=== PATIENT | female | born 1970 | race Caucasian/White ===

== ENCOUNTER 2019-12-19 15:14 | Outpatient (RCR) | payer OTHER, SELFPAY ==
[2019-09-20 11:28] LABS: INR 2.3; Prothrombin Time 24.7 Seconds (11.1-14.7)
[2019-09-27 08:57] LABS: INR 3.3
[2019-10-15 10:33] LABS: INR 2.8; Prothrombin Time 28.8 Seconds (11.1-14.7)
[2019-11-01 10:51] LABS: INR 2.4; Prothrombin Time 25.5 Seconds (11.1-14.7)
[2019-11-19 14:51] LABS: INR 2.6; Prothrombin Time 27.6 Seconds (11.1-14.7)
[2019-12-19 16:02] LABS: INR 2.2; Prothrombin Time 24.2 Seconds (11.1-14.7)
== END 2019-12-19 23:59 | disposition home or self-care (01) ==
LOC: ANHLAB 15:14
PROVIDERS: PCP Internal Medicine Cardiovascular Disease; Visit Provider Internal Medicine Cardiovascular Disease
DX: Z51.81 Encounter for therapeutic drug level monitoring (principal); D68.61 Antiphospholipid syndrome; Z79.01 Long term (current) use of anticoagulants
CPT/HCPCS: 36415; 85610

== ENCOUNTER 2020-03-09 12:35 | Outpatient (RCR) | payer OTHER, SELFPAY ==
[2020-01-03 11:20] LABS: INR 2.5; Prothrombin Time 26.5 Seconds (11.1-14.7)
[2020-01-24 17:22] LABS: Prothrombin Time 53.6 Seconds (11.1-14.7)
[2020-01-24 18:14] LABS: INR 6.1
[2020-01-28 13:41] LABS: INR 1.2; Prothrombin Time 15.2 Seconds (11.1-14.7)
[2020-02-07 11:16] LABS: INR 2.4; Prothrombin Time 25.8 Seconds (11.1-14.7)
[2020-02-24 12:23] LABS: INR 3.4; Prothrombin Time 33.8 Seconds (11.1-14.7)
[2020-03-09 13:06] LABS: INR 2.4; Prothrombin Time 25.6 Seconds (11.1-14.7)
== END 2020-04-02 23:59 | disposition home or self-care (01) ==
LOC: ANHLAB 12:35
PROVIDERS: PCP Internal Medicine; Visit Provider Internal Medicine Cardiovascular Disease
DX: Z51.81 Encounter for therapeutic drug level monitoring (principal); Z79.01 Long term (current) use of anticoagulants
CPT/HCPCS: 36415; 85610

== ENCOUNTER 2020-06-23 12:07 | Outpatient (RCR) | payer OTHER, SELFPAY ==
[2020-04-03 12:52] LABS: INR 2.2
[2020-04-17 12:16] LABS: INR 2.7; Prothrombin Time 28.5 Seconds (11.1-14.7)
[2020-05-11 12:44] LABS: Alanine Aminotransferase 60 U/L (4-35); Albumin Level 4.3 g/dL (3.5-5.1); Alkaline Phosphatase 139 U/L (38-126); Aspartate Amino Transferase 52 U/L (14-36); Bilirubin,Total 1.2 mg/dL (0.2-1.3); Blood Urea Nitrogen 14 mg/dL (7-17); Calcium 8.8 mg/dL (8.4-10.2); Carbon Dioxide 28 mmol/L (22-30); Chloride 103 mmol/L (98-107); Cholesterol 107 mg/dL (0-200); Estimated Glomerular Filt Rate > 60; Glucose 124 mg/dL (65-105); HDL Direct 30 mg/dL; Prothrombin Time 38.5 Seconds (11.1-14.7); Sodium 137 mmol/L (137-145); Triglycerides 113 mg/dL (<150)
[2020-05-11 12:55] LABS: LDL Cholesterol Direct 63 mg/dL
[2020-05-18 12:46] LABS: INR 2.2; Prothrombin Time 24.3 Seconds (11.1-14.7)
[2020-06-01 12:41] LABS: Cholesterol 132 mg/dL (0-200); HDL Direct 31 mg/dL; Triglycerides 159 mg/dL (<150)
[2020-06-01 12:42] LABS: INR 1.9; Prothrombin Time 21.2 Seconds (11.1-14.7)
[2020-06-01 12:42] LABS: Alanine Aminotransferase 54 U/L (4-35); Albumin Level 4.2 g/dL (3.5-5.1); Alkaline Phosphatase 151 U/L (38-126); Aspartate Amino Transferase 39 U/L (14-36); Bilirubin,Total 0.8 mg/dL (0.2-1.3); Blood Urea Nitrogen 18 mg/dL (7-17); Calcium 9.2 mg/dL (8.4-10.2); Carbon Dioxide 26 mmol/L (22-30); Chloride 103 mmol/L (98-107); Estimated Glomerular Filt Rate > 60; Glucose 139 mg/dL (65-105); Potassium 3.9 mmol/L (3.4-5.0); Sodium 136 mmol/L (137-145)
[2020-06-01 12:52] LABS: LDL Cholesterol Direct 76 mg/dL
[2020-06-23 13:20] LABS: INR 2.5; Prothrombin Time 26.1 Seconds (11.1-14.7)
== END 2020-07-02 23:59 | disposition home or self-care (01) ==
LOC: ANHLAB 12:07
PROVIDERS: PCP Internal Medicine; Visit Provider Internal Medicine Cardiovascular Disease
DX: Z51.81 Encounter for therapeutic drug level monitoring (principal); E78.5 Hyperlipidemia, unspecified; Z79.01 Long term (current) use of anticoagulants
CPT/HCPCS: 36415; 80053; 80061; 85610

== ENCOUNTER 2020-09-18 12:17 | Outpatient (RCR) | payer MEDICARE, OTHER, MEDICAID, SELFPAY ==
[2020-07-14 15:46] LABS: INR 2.9; Prothrombin Time 29.5 Seconds (11.1-14.7)
[2020-08-04 11:22] LABS: INR 2.4; Prothrombin Time 25.3 Seconds (11.1-14.7)
[2020-09-02 12:55] LABS: INR 1.7; Prothrombin Time 19.3 Seconds (11.1-14.7)
[2020-09-18 12:59] LABS: INR 2.8; Prothrombin Time 29.3 Seconds (11.1-14.7)
== END 2020-10-12 23:59 | disposition home or self-care (01) ==
LOC: ANHLAB 12:17
PROVIDERS: PCP Internal Medicine; Visit Provider Internal Medicine Cardiovascular Disease
DX: Z51.81 Encounter for therapeutic drug level monitoring (principal); Z79.01 Long term (current) use of anticoagulants
CPT/HCPCS: 36415; 85610

== ENCOUNTER 2021-01-13 11:09 | Outpatient (RCR) | payer MEDICARE, MEDICAID, SELFPAY ==
[2020-11-04 15:02] LABS: INR 1.4; Prothrombin Time 17.7 Seconds (11.1-14.7)
[2020-11-24 14:11] LABS: INR 2.3; Prothrombin Time 25.9 Seconds (11.1-14.7)
[2020-12-24 11:15] LABS: INR 1.8; Prothrombin Time 21.3 Seconds (11.1-14.7)
[2021-01-13 12:14] LABS: INR 2.3; Prothrombin Time 25.9 Seconds (11.1-14.7)
== END 2021-02-02 23:59 | disposition home or self-care (01) ==
LOC: ANHLAB 11:09
PROVIDERS: PCP Internal Medicine; Visit Provider Internal Medicine Cardiovascular Disease
DX: Z51.81 Encounter for therapeutic drug level monitoring (principal); Z79.01 Long term (current) use of anticoagulants
CPT/HCPCS: 36415; 85610

== ENCOUNTER 2021-05-11 12:22 | Outpatient (RCR) | payer MEDICARE, MEDICAID, SELFPAY ==
[2021-02-10 10:13] LABS: INR 2.5; Prothrombin Time 27.8 Seconds (11.1-14.7)
[2021-03-15 11:38] LABS: INR 1.6; Prothrombin Time 19.5 Seconds (11.1-14.7)
[2021-03-23 11:11] LABS: INR 3.2; Prothrombin Time 33.1 Seconds (11.1-14.7)
[2021-03-31 11:59] LABS: INR 2.8; Prothrombin Time 29.7 Seconds (11.1-14.7)
[2021-04-13 13:23] LABS: INR 1.8; Prothrombin Time 21.6 Seconds (11.1-14.7)
[2021-04-27 12:05] LABS: INR 3.5; Prothrombin Time 35.6 Seconds (11.1-14.7)
[2021-05-11 13:19] LABS: INR 2.6; Prothrombin Time 28.1 Seconds (11.1-14.7)
== END 2021-05-11 23:59 | disposition home or self-care (01) ==
LOC: ANHLAB 12:22
PROVIDERS: PCP Internal Medicine; Visit Provider Internal Medicine Cardiovascular Disease
DX: Z51.81 Encounter for therapeutic drug level monitoring (principal); D68.61 Antiphospholipid syndrome; Z79.01 Long term (current) use of anticoagulants
CPT/HCPCS: 36415; 85610

== ENCOUNTER 2021-05-11 12:25 | Outpatient (CLI) | payer MEDICARE, MEDICAID, SELFPAY ==
[2021-05-11 13:18] LABS: Alanine Aminotransferase 78 U/L (4-35); Albumin Level 4.4 g/dL (3.5-5.1); Alkaline Phosphatase 148 U/L (38-126); Anion Gap 11 mmol/L (8-16); Aspartate Amino Transferase 74 U/L (14-36); Bilirubin,Total 1.1 mg/dL (0.2-1.3); Blood Urea Nitrogen 14 mg/dL (7-17); Calcium 9.6 mg/dL (8.4-10.2); Carbon Dioxide 25 mmol/L (22-30); Chloride 104 mmol/L (98-107); Estimated Glomerular Filt Rate > 60; Glucose 126 mg/dL (65-105); Potassium 3.8 mmol/L (3.4-5.0); Sodium 140 mmol/L (137-145)
== END 2021-05-11 12:26 | disposition home or self-care (01) ==
PROVIDERS: PCP Internal Medicine; Visit Provider Internal Medicine Cardiovascular Disease
DX: E78.5 Hyperlipidemia, unspecified (principal)
CPT/HCPCS: 36415; 80053; 84443; 85610

== ENCOUNTER 2021-06-01 12:27 | Outpatient (CLI) | payer MEDICARE, MEDICAID, SELFPAY ==
[2021-06-01 13:12] LABS: INR 1.9; Prothrombin Time 21.3 Seconds (11.1-14.7)
[2021-06-01 13:15] LABS: Cholesterol 145 mg/dL (0-200); HDL Direct 36 mg/dL; Triglycerides 132 mg/dL (<150)
[2021-06-01 13:26] LABS: LDL Cholesterol Direct 84 mg/dL
== END 2021-06-01 12:28 | disposition home or self-care (01) ==
LOC: ANHLAB 12:30
PROVIDERS: PCP Internal Medicine; Visit Provider Internal Medicine Cardiovascular Disease
DX: E78.5 Hyperlipidemia, unspecified (principal); Z79.01 Long term (current) use of anticoagulants
CPT/HCPCS: 36415; 80061; 85610

== ENCOUNTER 2021-10-18 12:49 | Outpatient (RCR) | payer MEDICARE, MEDICAID, SELFPAY ==
[2021-07-21 11:17] LABS: INR 2.9; Prothrombin Time 29.2 Seconds (11.1-14.7)
[2021-08-18 11:23] LABS: INR 2.2; Prothrombin Time 23.7 Seconds (11.1-14.7)
[2021-09-27 11:23] LABS: INR 2.3; Prothrombin Time 24.8 Seconds (11.1-14.7)
[2021-10-18 13:34] LABS: INR 2.8
== END 2021-10-19 23:59 | disposition home or self-care (01) ==
LOC: ANHLAB 12:49
PROVIDERS: PCP Internal Medicine; Visit Provider Internal Medicine Cardiovascular Disease
DX: Z51.81 Encounter for therapeutic drug level monitoring (principal); Z79.01 Long term (current) use of anticoagulants
CPT/HCPCS: 36415; 85610

== ENCOUNTER 2021-12-13 10:59 | Outpatient (CLI) | payer MEDICARE, MEDICAID, SELFPAY ==
[2021-12-13 12:06] LABS: Alanine Aminotransferase 126 U/L (4-35); Albumin Level 4.5 g/dL (3.5-5.1); Alkaline Phosphatase 170 U/L (38-126); Anion Gap 10 mmol/L (8-16); Aspartate Amino Transferase 83 U/L (14-36); Bilirubin,Total 1.3 mg/dL (0.2-1.3); Blood Urea Nitrogen 16 mg/dL (7-17); Calcium 9.5 mg/dL (8.4-10.2); Carbon Dioxide 23 mmol/L (22-30); Chloride 99 mmol/L (98-107); Cholesterol 153 mg/dL (0-200); Estimated Glomerular Filt Rate > 60; Glucose 376 mg/dL (65-110); HDL Direct 33 mg/dL; Potassium 4.2 mmol/L (3.4-5.0); Sodium 132 mmol/L (137-145); Triglycerides 169 mg/dL (<150)
[2021-12-13 12:17] LABS: LDL Cholesterol Direct 99 mg/dL
== END 2021-12-13 11:00 | disposition home or self-care (01) ==
PROVIDERS: PCP Internal Medicine; Visit Provider Internal Medicine Cardiovascular Disease
DX: E78.5 Hyperlipidemia, unspecified (principal)
CPT/HCPCS: 36415; 80053; 80061; 85610

== ENCOUNTER 2022-01-12 09:25 | Outpatient (RCR) | payer MEDICARE, MEDICAID, SELFPAY ==
[2021-11-09 10:47] LABS: INR 3.2
[2021-12-13 12:17] LABS: INR 1.4; Prothrombin Time 16.7 Seconds (11.1-14.7)
[2022-01-12 09:58] LABS: Prothrombin Time 30.4 Seconds (11.1-14.7)
== END 2022-02-07 23:59 | disposition home or self-care (01) ==
LOC: ANHLAB 09:25
PROVIDERS: PCP Internal Medicine; Visit Provider Internal Medicine Cardiovascular Disease
DX: Z51.81 Encounter for therapeutic drug level monitoring (principal); Z79.01 Long term (current) use of anticoagulants
CPT/HCPCS: 36415; 85610

== ENCOUNTER 2022-05-20 11:07 | Outpatient (RCR) | payer MEDICARE, MEDICAID, SELFPAY ==
[2022-02-21 12:09] LABS: INR 2.6; Prothrombin Time 26.7 Seconds (11.1-14.7)
[2022-05-20 12:27] LABS: Prothrombin Time 21.7 Seconds (11.1-14.7)
== END 2022-05-22 23:59 | disposition home or self-care (01) ==
LOC: ANHLAB 11:07
PROVIDERS: PCP Internal Medicine; Visit Provider Internal Medicine Cardiovascular Disease
DX: Z51.81 Encounter for therapeutic drug level monitoring (principal); Z79.01 Long term (current) use of anticoagulants
CPT/HCPCS: 36415; 85610

== ENCOUNTER 2022-08-08 10:11 | Outpatient (RCR) | payer MEDICARE, MEDICAID, SELFPAY ==
[2022-06-13 12:33] LABS: INR 2.6; Prothrombin Time 26.8 Seconds (11.1-14.7)
[2022-07-04 12:08] LABS: INR 2.5
[2022-08-08 10:33] LABS: INR 2.9; Prothrombin Time 29.1 Seconds (11.1-14.7)
== END 2022-09-11 23:59 | disposition home or self-care (01) ==
LOC: ANHLAB 10:11
PROVIDERS: PCP Internal Medicine; Visit Provider Internal Medicine Cardiovascular Disease
DX: Z51.81 Encounter for therapeutic drug level monitoring (principal); Z79.01 Long term (current) use of anticoagulants
CPT/HCPCS: 36415; 85610

== ENCOUNTER 2022-12-27 09:52 | Outpatient (CLI) | payer MEDICARE, MEDICAID, SELFPAY ==
[2022-12-27 11:19] LABS: Alanine Aminotransferase 73 U/L (6-35); Albumin Level 4.1 g/dL (3.5-5.1); Alkaline Phosphatase 133 U/L (38-126); Anion Gap 5 mmol/L (8-16); Aspartate Amino Transferase 52 U/L (14-36); Blood Urea Nitrogen 13 mg/dL (7-17); Calcium 8.6 mg/dL (8.4-10.2); Carbon Dioxide 27 mmol/L (22-30); Chloride 101 mmol/L (98-107); Cholesterol 138 mg/dL (0-200); Estimated Glomerular Filt Rate > 60; Glucose 134 mg/dL (65-110); HDL Direct 31 mg/dL; Potassium 3.6 mmol/L (3.4-5.0); Sodium 133 mmol/L (137-145); Triglycerides 116 mg/dL (<150)
[2022-12-27 11:30] LABS: LDL Cholesterol Direct 78 mg/dL
== END 2022-12-27 09:53 | disposition home or self-care (01) ==
PROVIDERS: PCP Internal Medicine; Visit Provider Internal Medicine Cardiovascular Disease
DX: E78.5 Hyperlipidemia, unspecified (principal)
CPT/HCPCS: 36415; 80053; 80061; 85610

== ENCOUNTER 2022-12-27 09:52 | Outpatient (RCR) | payer MEDICARE, MEDICAID, SELFPAY ==
[2022-10-18 12:10] LABS: Prothrombin Time 30.4 Seconds (11.1-14.7)
[2022-12-06 12:45] LABS: INR 2.3; Prothrombin Time 24.3 Seconds (11.1-14.7)
[2022-12-27 11:18] LABS: INR 2.2; Prothrombin Time 23.7 Seconds (11.1-14.7)
== END 2023-01-16 23:59 | disposition home or self-care (01) ==
LOC: ANHLAB 09:52
PROVIDERS: PCP Internal Medicine; Visit Provider Internal Medicine Cardiovascular Disease
DX: Z51.81 Encounter for therapeutic drug level monitoring (principal); Z79.01 Long term (current) use of anticoagulants
CPT/HCPCS: 36415; 85610

== ENCOUNTER 2023-03-14 11:56 | Outpatient (RCR) | payer MEDICARE, MEDICAID, SELFPAY ==
[2023-01-17 11:22] LABS: INR 1.7; Prothrombin Time 19.2 Seconds (11.1-14.7)
[2023-03-14 12:31] LABS: INR 2.5; Prothrombin Time 26.5 Seconds (11.1-14.7)
== END 2023-04-17 23:59 | disposition home or self-care (01) ==
LOC: ANHLAB 11:56
PROVIDERS: PCP Internal Medicine; Visit Provider Internal Medicine Cardiovascular Disease
DX: Z51.81 Encounter for therapeutic drug level monitoring (principal); Z79.01 Long term (current) use of anticoagulants
CPT/HCPCS: 36415; 85610

== ENCOUNTER 2023-06-01 10:59 | Outpatient (RCR) | payer MEDICARE, MEDICAID, SELFPAY ==
[2023-04-25 11:25] LABS: INR 1.7; Prothrombin Time 21.4 Seconds (11.1-14.7)
[2023-05-02 11:11] LABS: INR 2.1; Prothrombin Time 25.5 Seconds (11.1-14.7)
[2023-06-01 12:05] LABS: INR 2.6; Prothrombin Time 29.9 Seconds (11.1-14.7)
== END 2023-07-24 23:59 | disposition home or self-care (01) ==
LOC: ANHLAB 10:59
PROVIDERS: PCP Internal Medicine; Visit Provider Internal Medicine Cardiovascular Disease
DX: Z51.81 Encounter for therapeutic drug level monitoring (principal); Z79.01 Long term (current) use of anticoagulants
CPT/HCPCS: 36415; 85610

== ENCOUNTER 2024-01-09 10:33 | Outpatient (CLI) | payer MEDICARE, MEDICAID, SELFPAY ==
[2024-01-09 11:56] LABS: Alanine Aminotransferase 106 U/L (6-35); Albumin Level 4.4 g/dL (3.5-5.1); Alkaline Phosphatase 141 U/L (38-126); Anion Gap 10 mmol/L (8-16); Aspartate Amino Transferase 77 U/L (14-36); Blood Urea Nitrogen 14 mg/dL (7-17); Calcium 9.7 mg/dL (8.4-10.2); Carbon Dioxide 24 mmol/L (22-30); Chloride 104 mmol/L (98-107); Cholesterol 140 mg/dL (0-200); Estimated Glomerular Filt Rate > 60; Glucose 150 mg/dL (65-110); HDL Direct 36 mg/dL; Potassium 3.9 mmol/L (3.4-5.0); Sodium 138 mmol/L (137-145); Triglycerides 123 mg/dL (<150)
[2024-01-09 12:08] LABS: LDL Cholesterol Direct 89 mg/dL
[2024-01-09 14:01] LABS: Hemoglobin A1C 6.3 % (<5.7)
== END 2024-01-09 10:34 | disposition home or self-care (01) ==
PROVIDERS: PCP Internal Medicine; Visit Provider Internal Medicine Cardiovascular Disease
DX: E78.5 Hyperlipidemia, unspecified (principal); E11.9 Type 2 diabetes mellitus without complications
CPT/HCPCS: 36415; 80053; 80061; 83036